=== PATIENT | female | born 1975 | race Caucasian/White ===

== ENCOUNTER 2018-01-30 08:10 | Day surgery (SDC) | payer OTHER ==
[2018-01-30] MEDS ORDERED: CEFAZOLIN 1 GM/50 ML (PMX) 50 ML IVPB (12:00)
[2018-01-30] MEDS: SOD CHLORIDE 0.9% 1,000 ML IV (12:24)
[2018-01-30 12:27] LABS: ADD MAN DIFF? NO
[2018-01-30 12:31] LABS: EOSINOPHILS # 0.1 10^3/ul (0.0-0.5); EOSINOPHILS % 2.5 % (0.0-7.0); HEMOGLOBIN 14.6 g/dl (12.0-16.0); LYMPHOCYTES # 1.7 10^3/ul (0.8-2.9); LYMPHOCYTES % 41.5 % (15.0-51.0); MEAN CORPUSCULAR HEMOGLOBIN 32.7 pg (29.0-33.0); MEAN CORPUSCULAR VOLUME 96.2 fl (82.0-101.0); MEAN PLATELET VOLUME 10.3 fl (7.4-10.4); MONOCYTE # 0.4 10^3/ul (0.3-0.9); MONOCYTES % 10.6 % (0.0-11.0); NEUTROPHIL # 1.8 10^3/ul (1.6-7.5); NEUTROPHILS % 44.2 % (39.0-77.0); PLATELET COUNT 157 10^3/UL (140-415); RED BLOOD COUNT 4.47 10^6/ul (4.20-5.40); RED CELL DISTRIBUTION WIDTH 11.8 % (11.5-14.5)
[2018-01-30 12:49] LABS: INR 0.98; PROTIME 13.1 Sec (11.9-14.9)
[2018-01-30 12:50] LABS: PARTIAL THROMBOPLASTIN TIME 30.1 Sec (25.0-35.0)
[2018-01-30 12:52] LABS: WHITE BLOOD COUNT 4.1 10^3/ul (4.8-10.8)
[2018-01-30 12:52] LABS: ALANINE AMINOTRANSFERASE 22 IU/L (13-69); ALBUMIN 4.4 g/dl (3.3-4.9); ALBUMIN/GLOBULIN RATIO 1.91; ALKALINE PHOSPHATASE 46 IU/L (42-121); ANION GAP 10 (8-16); ASPARTATE AMINO TRANSFERASE 20 IU/L (15-46); BILIRUBIN,INDIRECT 1.1 mg/dl (0-1.1); BILIRUBIN,TOTAL 1.1 mg/dl (0.2-1.3); BLOOD UREA NITROGEN 6 mg/dl (7-20); CALCIUM 9.3 mg/dl (8.4-10.2); CARBON DIOXIDE 28 mmol/L (21-31); CHLORIDE 108 mmol/L (97-110); CREATININE 0.62 mg/dl (0.44-1.00); GLUCOSE 87 mg/dl (70-220); HOLD TRANSMISSIONS 1; SODIUM 142 mmol/L (135-144); TOTAL PROTEIN 6.7 g/dl (6.1-8.1)
[2018-01-30] MEDS ORDERED: CEFAZOLIN 1 GM INJ (13:38)
[2018-01-30] MEDS ORDERED: PROPOFOL 20 ML (13:38)
[2018-01-30] MEDS ORDERED: FENTAnyl 50 MCG/ML VIAL (13:38)
[2018-01-30] MEDS ORDERED: MIDAZOLAM 1 MG/ML 2 ML INJ (13:38)
[2018-01-30] MEDS ORDERED: DIPHENHYDRAMINE 50 MG INJ IV (14:00)
[2018-01-30] MEDS ORDERED: MEPERIDINE 25 MG INJ IV (14:00)
[2018-01-30] MEDS ORDERED: OXYCODONE/ACETAMINOPHEN (5/325) TAB PO (14:00)
[2018-01-30] MEDS ORDERED: FENTAnyl 50 MCG/ML VIAL IV ×3 (14:00)
[2018-01-30] MEDS ORDERED: ONDANSETRON 4 MG INJ IV (14:00)
[2018-01-30] MEDS ORDERED: EPHEDrine SULFATE 50 MG/5 ML SYG IV (14:00)
[2018-01-30] MEDS ORDERED: HYDROmorphONE 1 MG/5 ML IV SYRINGE IV ×2 (14:00)
[2018-01-30] MEDS ORDERED: LABETALOL HCL 20MG INJ IV (14:00)
[2018-01-30] MEDS ORDERED: METOCLOPRAMIDE 10 MG INJ IV (14:00)
[2018-01-30] MEDS ORDERED: ONDANSETRON 4 MG INJ (14:18)
[2018-01-30] MEDS ORDERED: DEXAMETHASONE 4 MG/ML 1 ML INJ (14:18)
[2018-01-30] MEDS ORDERED: EPHEDrine 25 MG/5 ML SYG (14:18)
[2018-01-30] MEDS ORDERED: KETOROLAC 30 MG INJ (14:18)
[2018-01-30] MEDS ORDERED: METOCLOPRAMIDE 10 MG INJ (14:18)
[2018-01-30] MEDS: BUPIVACAINE 0.25% (MPF) 30 ML INJ (14:25)
[2018-01-30] MEDS ORDERED: HYDROCODONE/APAP (5/325) TAB PO (15:00)
== END 2018-01-30 17:28 | disposition home or self-care (01) ==
LOC: SDS 08:10
DX: D24.2 Benign neoplasm of left breast (principal); N60.22 Fibroadenosis of left breast; N60.12 Diffuse cystic mastopathy of left breast
CPT/HCPCS: 14000; 80053; 84703; 85025; 85610; 85730; 88307